=== PATIENT | male | born 1955 | race Asian ===

== ENCOUNTER 2021-06-16 14:02 | Emergency (ER) | payer OTHER ==
[~2021-06-16] VITALS: Ht 167.6 cm; Wt 80.0 kg
[2021-06-16] MEDS ORDERED: MECLIZINE 25MG TABLET PO ONE ×2 (14:30→16:45)
[2021-06-16] MEDS ORDERED: ACETAMINOPHEN 325MG TABLET PO ONE (14:30)
[2021-06-16 17:00] VITALS: BP 182/92
== END 2021-06-16 18:32 | disposition home or self-care (01) ==
LOC: ER 14:13
DX: R42 Dizziness and giddiness (principal); R51.9 Headache, unspecified
CPT/HCPCS: 99284; J8597